=== PATIENT | male | born 1995 | race Caucasian/White ===

== ENCOUNTER 2019-06-16 08:39 | Emergency (ER) | payer BC, MEDICAID ==
[~2019-06-16] VITALS: Ht 170.2 cm; Wt 48.9 kg
[2019-06-16 08:41] VITALS: BP 112/79
== END 2019-06-16 09:36 | disposition home or self-care (01) ==
LOC: ED 09:30
DX: J02.0 Streptococcal pharyngitis (principal)
CPT/HCPCS: 99283